=== PATIENT | male | born 1955 | race Caucasian/White ===

== ENCOUNTER → 2019-07-14 | Outpatient (CLI) | payer OTHER ==
[2019-07-14 11:04] LABS: ABSOLUTE BASOPHILS # (AUTO) 0.1 10^3/uL (0.0-0.2); ABSOLUTE EOSINOPHILS # (AUTO) 0.2 10^3/uL (0.0-0.6); ABSOLUTE LYMPHOCYTES (AUTO) 1.3 10^3/uL (0.5-4.7); ABSOLUTE MONOCYTES (AUTO) 0.5 10^3/uL (0.1-1.4); ABSOLUTE NEUT (AUTO) 6.1 10^3/uL (1.7-8.2); BASOPHILS % (AUTO) 0.6 % (0-2); EOSINOPHILS % (AUTO) 2.5 % (0-6); HEMOGLOBIN 16.1 g/dL (13.5-17.0); MEAN CORPUSCULAR HEMOGLOBIN 29.6 pg (27.0-33.4); MEAN CORPUSCULAR HGB CONC 33.6 g/dL (32.0-36.0); MEAN CORPUSCULAR VOLUME 88 fl (80-97); MONOCYTES % (AUTO) 6.2 % (3-13); PLATELET COUNT 292 10^3/uL (150-450); RED BLOOD COUNT 5.45 10^6/uL (4.35-5.55); RED CELL DISTRIBUTION WIDTH 14.6 % (11.5-14.0); SEGMENTED NEUTROPHILS % (AUTO) 74.7 % (42-78); TOTAL CELLS COUNTED % (AUTO) 100 %; WHITE BLOOD COUNT 8.2 10^3/uL (4.0-10.5)
[2019-07-14 11:33] LABS: ALBUMIN 4.7 g/dL (3.5-5.0); ALKALINE PHOSPHATASE 61 U/L (38-126); ANION GAP 10 (5-19); ASPARTATE AMINO TRANSFERASE 23 U/L (17-59); BILIRUBIN,DIRECT 0.3 mg/dL (0.0-0.4); BILIRUBIN,TOTAL 0.6 mg/dL (0.2-1.3); BLOOD UREA NITROGEN 17 mg/dL (7-20); CALCIUM 9.8 mg/dL (8.4-10.2); CARBON DIOXIDE 31 mmol/L (22-30); CHLORIDE 99 mmol/L (98-107); CHOLESTEROL 247.53 mg/dL (0-200); GLUCOSE 74 mg/dL (75-110); POTASSIUM 4.6 mmol/L (3.6-5.0); TOTAL PROTEIN 7.5 g/dL (6.3-8.2); TRIGLYCERIDES 253 mg/dL (<150)
[2019-07-14 11:44] LABS: DIRECT LDL 192 mg/dL (<100)
[2019-07-14 11:48] LABS: VLDL CHOLESTEROL 50.6 mg/dL (10-31)
== END ==
LOC: CCC 09:31
DX: Z00.00 Encounter for general adult medical examination without abnormal findings (principal)
CPT/HCPCS: 36415; 80053; 80061; 83036; 84443; 85025

== ENCOUNTER 2020-08-24 13:12 | Emergency (ER) | payer SELFPAY ==
[2020-08-24 13:33] VITALS: BP 137/68
[2020-08-24] MEDS ORDERED: ASPIRIN 81 MG TABLET, CHEWABLE PO ONE (13:43)
--- NOTE | 2020-08-24 13:45 | ER Document Report ---
ED Medical Screen (RME) - General Chief Complaint: Chest Pain Stated Complaint: CHEST PAIN,LEFT ARM PAIN Time Seen by Provider: 08/24/20 13:37 Primary Care Provider: JAZMIN CURRY [Primary Care Provider] - Follow up as needed TRAVEL OUTSIDE OF THE [place] IN LAST 30 DAYS: No - HPI Notes: 08/24/20 13:44 64-year-old male to the emergency department with complaints of left-sided chest pain that radiated down his arm that started about 10 AM and just recently let up some. He states he continues to have chest pressure. Admits that he had a little bit of associated diaphoresis. Denies any shortness of breath back pain jaw pain right arm pain. He denies any pain with a deep breath. He states he was opening his computer when his symptoms started. He has never had a heart attack before he does have a history of throat cancer and is currently in remission. He is a former smoker. He does not have diabetes or high blood pressure. He thinks that his father may have had a heart attack at some point during his life but he is not completely sure. He does not have hyperlipidemia. He does admit that he recently was started on levothyroxine for hypothyroidism. He states that he did feel like his heart was racing and it did go up to about 140 bpm when he measured it. I performed a brief medical screening exam on the patient determined that the patient needs further evaluation and management by main side provider. I have placed initial orders to help expedite care. Physical Exam - Vital signs Vitals: Temp Pulse Resp BP Pulse Ox 98.1 F 66 18 137/68 H 97 08/24/20 13:08/24/20 13:08/24/20 13:30 08/24/20 13:30 08/24/20 13:30 Course - Vital Signs Vital signs: Temp Pulse Resp BP Pulse Ox 98.1 F 66 18 137/68 H 97 08/24/20 13:30 08/24/20 13:30 08/24/20 13:30 08/24/20 13:30 08/24/20 13:30 Doctor's Discharge - [facility] - Follow up as needed
--- NOTE | 2020-08-24 14:23 | RADIOLOGY REPORT (SQ) ---
EXAM DESCRIPTION: CHEST 2 VIEWS IMAGES COMPLETED DATE/TIME: 08/24/2020 2:10 pm REASON FOR STUDY: chest pain COMPARISON: None. EXAM PARAMETERS: NUMBER OF VIEWS: two views TECHNIQUE: Digital Frontal and Lateral radiographic views of the chest acquired. RADIATION DOSE: NA LIMITATIONS: none FINDINGS: LUNGS AND PLEURA: No opacities, masses or pneumothorax. No pleural effusion. MEDIASTINUM AND HILAR STRUCTURES: No masses or contour abnormalities. HEART AND VASCULAR STRUCTURES: Heart normal size. No evidence for failure. BONES: No acute findings. HARDWARE: None in the chest. OTHER: No other significant finding. IMPRESSION: NO ACUTE RADIOGRAPHIC FINDING IN THE CHEST. TECHNICAL DOCUMENTATION: JOB ID: [id number] 2010 [employer]- All Rights Reserved Reading location - IP/workstation name: [email or web address]
[2020-08-24 14:26] LABS: HEMATOCRIT 42.2 % (37.9-51.0); HEMOGLOBIN 14.6 g/dL (13.5-17.0); MEAN CORPUSCULAR HEMOGLOBIN 31.5 pg (27.0-33.4); MEAN CORPUSCULAR HGB CONC 34.5 g/dL (32.0-36.0); MEAN CORPUSCULAR VOLUME 91 fl (80-97); PLATELET COUNT 259 10^3/uL (150-450); RED BLOOD COUNT 4.63 10^6/uL (4.35-5.55); WHITE BLOOD COUNT 10.8 10^3/uL (4.0-10.5)
[2020-08-24 14:28] LABS: INTERNATIONAL RATION (INR) 0.95; PROTHROMBIN TIME 12.8 SEC (11.4-15.4)
[2020-08-24 14:29] LABS: PARTIAL THROMBOPLASTIN TIME 31.4 SEC (23.5-35.8)
[2020-08-24 14:44] LABS: ALBUMIN 4.6 g/dL (3.5-5.0); ALKALINE PHOSPHATASE 65 U/L (38-126); ANION GAP 8 (5-19); ASPARTATE AMINO TRANSFERASE 60 U/L (17-59); BILIRUBIN,DIRECT 0.3 mg/dL (0.0-0.4); BILIRUBIN,TOTAL 0.5 mg/dL (0.2-1.3); BLOOD UREA NITROGEN 20 mg/dL (7-20); CALCIUM 9.8 mg/dL (8.4-10.2); CARBON DIOXIDE 29 mmol/L (22-30); CHLORIDE 99 mmol/L (98-107); GLUCOSE 104 mg/dL (75-110); POTASSIUM 4.8 mmol/L (3.6-5.0); TOTAL PROTEIN 7.3 g/dL (6.3-8.2)
[2020-08-24 14:45] LABS: ABSOLUTE LYMPHOCYTES# (MANUAL) 0.5 10^3/uL (0.5-4.7); ABSOLUTE MONOCYTES # (MANUAL) 0.3 10^3/uL (0.1-1.4); BASOPHILS % (MANUAL) 0 % (0-2); EOSINOPHILS % (MANUAL) 1 % (0-6); LYMPHOCYTES % (MANUAL) 5 % (13-45); MONOCYTES % (MANUAL) 3 % (3-13); SEGMENTED NEUTROPHILS % (MAN) 91 % (42-78); TOTAL CELLS COUNTED 100
[2020-08-24 14:46] LABS: PLATELET COMMENT ADEQUATE; RBC MORPHOLOGY COMMENT NORMO-CYTIC/CHROMIC
[2020-08-24] MEDS ORDERED: NITROGLYCERIN/D5W 50 MG/250 ML RTUINJ IV PRN (15:09)
[2020-08-24] MEDS ORDERED: HEPARIN SOD (PORCINE) 1,000 UNIT/ML 10 ML VIAL IV ONE (15:22)
--- NOTE | 2020-08-24 15:29 | ER Document Report ---
ED Cardiac - General Chief Complaint: Chest Pain Stated Complaint: CHEST PAIN,LEFT ARM PAIN Time Seen by Provider: 08/24/20 13:37 Primary Care Provider: [facility] [NO LOCAL MD] - Follow up as needed TRAVEL OUTSIDE OF THE [place] IN LAST 30 DAYS: No - HPI Patient complains to provider of: Chest pain Was the onset of pain: Gradual When did pain begin: 10 am this morning Is the pain a: New problem Chest pain location: Substernal Quality of pain: Pressure Chest pain radiation location: Left jaw, Left arm Pain level currently: 1 Positive cardiac history: No Associated symptoms: Jaw pain. denies: Hypotension, Nausea/vomiting, Shortness of breath, Weakness Exacerbated by: Denies Relieved by: Nothing Similar symptoms previously: No Recently seen / treated by doctor: No Notes: Patient is a 64-year-old male with no past cardiac history who presents with left-sided chest pressure radiating down his left arm and into his jaw. Patient states symptoms began around 10 AM this morning. He denies any back pain. No n umbness. No nausea or shortness of breath. Patient is not on a blood thinner. He states he only takes aspirin and a thyroid medicine. Patient has had a history of throat cancer in remission. Patient denies any recent brain surgery or spinal surgery. No intracranial hemorrhage history. No known stroke history. He is from out of town and is visiting his son in the area. 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 - Related Data Allergies/Adverse Reactions: rofecoxib [From Vioxx] Allergy (Verified 08/24/20 14:36) Home Medications: synthroid. B 12 Past Medical History - General Information source: Patient - Social History Smoking Status: Current Some Day Smoker Family History: Reviewed & Not Pertinent Review of Systems - Review of Systems Notes: CONSTITUTIONAL: No fever SKIN: No rash. HENT: No congestion, ear pain, or sore throat. EYES: No recent vision problems or eye pain. CARDIOVASCULAR: Positive for chest pain. No edema. RESPIRATORY: No cough, shortness of breath, congestion, or wheezing. GASTROINTESTINAL: No abdominal pain, nausea, vomiting, bloody stools or diarrhea. MUSCULOSKELETAL: No joint pain or swelling. LYMPHATIC: No swollen glands. NEUROLOGIC: No seizures. No headache, focal weakness or sensory changes. HEMATOLOGIC: No unusual bruising or bleeding. PSYCHIATRIC: No depression or anxiety. Physical Exam - Vital signs Vitals: Temp Pulse Resp BP Pulse Ox 98.1 F 66 18 137/68 H 97 08/24/20 13:30 08/24/20 13:30 08/24/20 13:30 08/24/20 13:30 08/24/20 13:30 - Notes Notes: VITAL SIGNS: Within normal limits. GENERAL: Non-toxic appearance. HEAD: Normal with no signs of head trauma. EYES: Conjunctiva normal, no discharge. EARS: Hearing grossly intact. NOSE: Normal. NECK: Normal range of motion. CHEST: Clear breath sounds bilaterally. No wheezes, rales, or rhonchi. CARDIAC: Regular rate and rhythm. S1 and S2, without murmurs, gallops, or rubs. VASCULAR: No Edema. Radial pulses equal bilaterally. ABDOMEN: Normal and soft with no tenderness MUSCULOSKELETAL: Good range of motion of all major joints. Extremities without clubbing, cyanosis or edema. NEUROLOGICAL: Alert and oriented x 3. No focal sensory or strength deficits. Speech normal. Follows commands appropriately. PSYCHIATRIC: Normal Affect, judgement and mood. SKIN: Normal appearance with no rashes or lesions. - General General appearance: Alert Course - Re-evaluation Re-evalutation: 08/24/20 16:06 Nursing staff asked me to evaluate this patient at approximately 3pm as he did not yet have an attending assigned and his troponin came back elevated. Patient is complaining of chest pressure that radiates to his jaw and left arm. We r epeated an EKG and patient now has ST elevations in the inferior leads with reciprocal depressions anteriorly when compared to his EKG from earlier today concerning for a STEMI. Patient was given a heparin bolus. He had a total of 4 baby aspirin today (2 baby aspirin here and 2 at home prior to arrival). We immediately contacted [facility] for transport for Emergency Management Director. Helicopter crew arrived. I discussed with Dr. Wells who accepted the patient. He stated that we should not give lytics because he is going to go straight to the Emergency Management Director. Patient was not given any nitro as he does have an inferior STEMI and I did not want to decrease his blood pressure due to that. Dr. Wells recommended immediate transfer and no other treatment other than the aspirin and heparin that was already given. I discussed all this with the patient and his family and they are in agreement. Patient's vitals are stable prior to transfer. 08/24/20 16:14 - Vital Signs Vital signs: Temp Pulse Resp BP Pulse Ox 98.1 F 66 18 137/68 H 97 08/24/20 13:30 08/24/20 13:30 08/24/20 13:30 08/24/20 13:30 08/24/20 13:30 - Laboratory Result Diagrams: 08/24/20 13:55 08/24/20 13:55 Laboratory results interpreted by me: 08/24/20 08/24/20 08/24/20 13:55 13:55 13:55 WBC 10.8 H Seg Neuts % (Manual) 91 H Lymphocytes % (Manual) 5 L Abs Neuts (Manual) 9.8 H Sodium 136.4 L AST 60 H TSH 6.33 H - Diagnostic Test Radiology reviewed: Image reviewed, Reports reviewed - EKG Interpretation by Me EKG shows normal: Sinus rhythm Rhythm: NSR When compared to previous EKG there are: Changes noted Additional EKG results interpreted by me: 08/24/20 15:29 1:20pm EKG: Sinus rhythm at a rate of 66. Borderline ST elevation in leads II, III and aVF. 3:06pm EKG: ST elevation in leads II, III and aVF. Reciprocal ST depressions in lead V1 and V2. Consistent with acute DE. 08/24/20 16:13 Critical Care Note - Critical Care Note Total time excluding time spent on procedures (mins): 30 Comments: Upon my evaluation, this patient had a high probability of imminent or life- threatening deterioration due to a STEMI which required my direct attention and personal management. I have personally provided 30 minutes of critical care time. Time includes review of laboratory data, radiology results, discussion with consultants, and monitoring for potential decompensation. Discharge - Discharge Clinical Impression: ST elevation myocardial infarction (STEMI) of inferior wall Chest pain Qualifiers: Chest pain type: chest pain due to myocardial ischemia Ischemic chest pain type: unspecified angina pectoris type Qualified Code(s): I25.9 - Chronic ischemic heart disease, unspecified Condition: Serious Disposition: [facility] [NO LOCAL MD] - Follow up as needed
--- NOTE | 2020-08-24 22:06 | EKG REPORT ---
SEVERITY:- BORDERLINE ECG - SINUS RHYTHM BORDERLINE ST ELEVATION, INFERIOR LEADS : Confirmed by: Viji Vallejo MD 24-Aug-2020 22:06:16
--- NOTE | 2020-08-24 22:06 | EKG REPORT ---
SEVERITY:- ABNORMAL ECG - SINUS RHYTHM INFERIOR INJURY, EARLY ACUTE INFARCT CONSIDER POSTERIOR WALL INVOLVEMENT : Confirmed by: Viji Vallejo MD 24-Aug-2020 22:06:08
== END 2020-08-24 15:50 | disposition short-term general hospital (02) ==
LOC: ER 13:12
DX: I21.19 ST elevation (STEMI) myocardial infarction involving other coronary artery of inferior wall (principal); I25.9 Chronic ischemic heart disease, unspecified; F17.200 Nicotine dependence, unspecified, uncomplicated; E03.9 Hypothyroidism, unspecified; Z79.899 Other long term (current) drug therapy; Z79.82 Long term (current) use of aspirin; Z88.8 Allergy status to other drugs, medicaments and biological substances
CPT/HCPCS: 93005 ×2; 99291; 96374; 36415; 84443; 85025; 85610; 85730; 80053; 84484; 71046; 93010; J1644